=== PATIENT | male | born 1985 | race Caucasian/White ===

== ENCOUNTER 2019-01-10 13:50 | Emergency (ER) | payer SELFPAY ==
[2019-01-10] MEDS ORDERED: KETOROLAC TROMETHAMINE 60 MG/2 ML VIAL IM ONE (13:57)
--- NOTE | 2019-01-10 13:57 | PDOC ---
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 PE: No focal deficits. Orders: Toradol Patient will proceed to ED for continued evaluation. Discharge Disposition - Diagnosis Back pain - Referrals - Patient Instructions - Post Discharge Activity
[2019-01-10 13:58] VITALS: BP 120/63; PULSE 68; TEMP 98.4; BMI 32.5
--- NOTE | 2019-01-10 14:36 | PDOC ---
History of Present Illness - General Chief Complaint: Back Pain Stated Complaint: BACK PAIN Time Seen by Provider: 01/10/19 13:54 - History of Present Illness Initial Comments: 01/10/19 14:33 33-year-old male without comorbidities presents for evaluation of lower back pain with posterior lateral left right leg radicular symptoms. No loss of bowel or bladder function or systemic symptoms. States the injury occurred 4 days ago while twisting and lifting something at work Past History - Past Medical History Allergies/Adverse Reactions: Allergies Allergy/AdvReac Type Severity Reaction Status Date / Time No Known Allergies Allergy Verified 01/10/19 13:58 Home Medications: Ambulatory Orders Cyclobenzaprine HCl [Flexeril 10 mg] 10 mg PO HS PRN #10 tablet 01/10/19 Methylprednisolone [Medrol Dose Renato] 4 mg PO ASDIR #21 tablet 01/10/19 COPD: No - Immunization History Immunization Up to Date: No - Psycho Social/Smoking Cessation Hx Smoking History: Never smoked Have you smoked in the past 12 months: No Information on smoking cessation initiated: No Hx Alcohol Use: No Drug/Substance Use Hx: No Review of Systems - Review of Systems Constitutional: No: Fever Musculoskeletal: Yes: Back Pain *Physical Exam - Vital Signs Last Vital Signs Temp Pulse Resp BP Pulse Ox 98.4 F 68 18 120/63 100 01/10/19 13:57 01/10/19 13:57 01/10/19 13:57 01/10/19 13:57 01/10/19 13:57 - Physical Exam Comments: 01/10/19 14:34 Lumbar spine skin color and temperature are normal. There is decreased painful range of motion. 5 out of 5 strength in bilateral lower extremities. Straight leg raise test is positive on the right negative on the left. Thighs and calves are soft and nontender. There are no gross sensory motor deficits. Neurovascularly intact. ED Treatment Course - Medications Given in the ED: ED Medications Discontinued Medications Generic Name Dose Route Start Last Admin Trade Name Freq PRN Reason Stop Dose Admin Ketorolac Tromethamine 60 mg 01/10/19 13:57 01/10/19 14:05 Toradol Injection - IM 01/10/19 13:58 60 mg ONCE ONE Administration Medical Decision Making - Medical Decision Making 01/10/19 14:35 Lumbar spine radiculopathy Medrol Dosepak Flexeril follow-up with neurosurgery Discharge - Discharge Information Problems reviewed: Yes Clinical Impression/Diagnosis: Back pain, Lumbar radiculopathy, acute Condition: Stable Disposition: HOME - Admission No - Additional Discharge Information Prescriptions: Cyclobenzaprine HCl [Flexeril 10 mg] 10 mg PO HS PRN #10 tablet PRN Reason: Muscle Spasms Methylprednisolone [Medrol Dose Renato] 4 mg PO ASDIR #21 tablet - Follow up/Referral Referrals: Watson Junior MD [Staff Physician] - - Patient Discharge Instructions Additional Instructions: Please take the steroid pack and the muscle relaxer as directed. Do not take anti-inflammatories such as Advil Motrin Aleve or ibuprofen. You may take Tylenol as directed for additional pain medication. Return to the emergency room for worsening symptoms without fail, please follow-up with neurosurgery in 1 to 2 days for further evaluation and treatment options. - Post Discharge Activity
== END 2019-01-10 14:44 | disposition home or self-care (01) ==
LOC: JERFT 13:50 → JER 13:50
PROC: 3E0233Z Introduction of Anti-inflammatory into Muscle, Percutaneous Approach (ICD-10-PCS; principal; 2019-01-10)
DX: M54.16 Radiculopathy, lumbar region (principal); X50.1XXA Overexertion from prolonged static or awkward postures, initial encounter; Y93.H3 Activity, building and construction; Y92.69 Other specified industrial and construction area as the place of occurrence of the external cause; Y99.0 Civilian activity done for income or pay
CPT/HCPCS: 99282-25

== ENCOUNTER 2020-03-01 21:17 | Emergency (ER) | payer SELFPAY ==
[2020-03-01 21:23] VITALS: BP 123/61; PULSE 92; TEMP 100.2
[2020-03-01] MEDS ORDERED: ACETAMINOPHEN 325 MG TABLET (FP) PO ONE (21:48)
[2020-03-01] MEDS ORDERED: ACETAMINOPHEN 325 MG TABLET (FP) ONE (21:55)
== END 2020-03-01 22:49 | disposition home or self-care (01) ==
LOC: JER 21:17
DX: U07.1 COVID-19 (principal); R50.9 Fever, unspecified
CPT/HCPCS: 71046-TC-FY; 99285-25; C9803; U0003

== ENCOUNTER 2022-02-26 20:29 | Emergency (ER) | payer SELFPAY ==
[2022-02-26 20:44] VITALS: BP 116/62; PULSE 83; RESP 20; TEMP 98.1; BMI 25.8
[2022-02-26 22:45] LABS: EPI CELLS 0 /uL (0-25.1); HYALINE CASTS 0 /uL (0-3.1); PH,URINE 6.5 (5.0-8.0); URINE APPEARANCE CLEAR; URINE BACTERIA 0 /uL (0-1359); URINE BILIRUBIN NEGATIVE (NEGATIVE); URINE COLOR YELLOW; URINE GLUCOSE (UA) NEGATIVE (NEGATIVE); URINE KETONE TRACE (NEGATIVE); URINE LEUK ESTERASE NEGATIVE (NEGATIVE); URINE NITRITE NEGATIVE (NEGATIVE); URINE PROTEIN NEGATIVE (NEGATIVE); URINE RBC 253 /uL (0-23.9); URINE WBC 2 /uL (0-25.8)
[2022-02-26 23:17] LABS: BASO % 0.5 % (0-2.0); EOS % 4.1 % (0-4.5); HEMATOCRIT 44.9 % (35.4-49); HEMOGLOBIN 15.5 GM/dL (11.7-16.9); MCH 29.8 pg (25.7-33.7); MCHC 34.6 g/dl (32.0-35.9); MEAN CELL VOLUME 86.2 fl (80-96); MEAN PLT VOLUME 8.2 fl (7.5-11.1); MONO % 7.9 % (3.8-10.2); NEUT % 52.5 % (42.8-82.8); PLATELET COUNT 249 10^3/uL (134-434); RBC 5.21 M/mm3 (4.00-5.60); RDW 13.7 % (11.9-15.9); WHITE BLOOD COUNT 6.2 K/mm3 (4.0-10.0)
[2022-02-26 23:36] LABS: BLOOD UREA NITROGEN 11.5 mg/dL (7-18); CALCIUM 8.6 mg/dL (8.5-10.1)
[2022-02-26 23:39] LABS: CREATININE 0.9 mg/dL (0.55-1.3)
== END 2022-02-27 01:17 | disposition home or self-care (01) ==
LOC: JER 20:29 → JERFT 20:29 → JER 02-27 01:17
DX: R30.0 Dysuria (principal); N20.0 Calculus of kidney
CPT/HCPCS: 36415; 74176-TC; 80048; 81003; 85025; 87086; 99284-25